=== PATIENT | male | born 1955 | race Caucasian/White ===

== ENCOUNTER → 2017-08-10 | Outpatient (CLI) | payer MEDICAID | LOC: FIMAGING 08:14 | PROVIDERS: ATTEND Internal Medicine | DX: I10 Essential (primary) hypertension (principal); R93.422 Abnormal radiologic findings on diagnostic imaging of left kidney; K76.0 Fatty (change of) liver, not elsewhere classified ==

== ENCOUNTER 2017-08-12 09:11 | Outpatient (CLI) | payer MEDICAID ==
[2017-08-12] MEDS ORDERED: NALOXONE HCL 0.4 MG/ML INJ ONE (11:04)
[2017-08-12] MEDS ORDERED: MIDAZOLAM 2 MG/2 ML VIAL ONE (11:05)
[2017-08-12] MEDS ORDERED: fentaNYL 100 MCG/2 ML INJ ONE (11:05)
[2017-08-12] MEDS ORDERED: FLUMAZENIL 0.5 MG/5 ML MDV IVP ONE (11:05)
--- NOTE | 2017-08-12 11:13 | PDGENHP ---
History & Physical Chief Complaint: Proteinuria History of Present Illness: Discovered on routine urinalysis, probably present since about 2009. "Foamy" urine. Pertinent Past, Social, Family History: Positive for kidney disease. History of hypertension, takes lisinopril. Cardiorespiratory Assessment: Lungs: clear to auscultation. Heart: RRR, 56 bpm , 2/6 low pitched holosystolic murmur.
--- NOTE | 2017-08-12 11:14 | PDPROPOC ---
Sedation Plan of Care Sedation Plan of Care: vital signs stable, mental status noted, patient educated of risks, benefits, alternatives, patient can tolerate sedation ASA Classification: ASA 2 Planned drugs: fentanyl, midazolam Mallampati Score: Class 3 Mallampati Reference Image: Patient passed 3-3-2 rule?: Yes
[2017-08-12] MEDS ORDERED: ALTEPLASE 2 MG VIAL IVP PRN (12:22)
[2017-08-12] MEDS ORDERED: GLUCAGON HCL 1 MG VIAL IVP PRN (12:22)
[2017-08-12] MEDS ORDERED: MIDAZOLAM 2 MG/2 ML VIAL IVP PRN (12:22)
[2017-08-12] MEDS ORDERED: PROTAMINE SULFATE 50 MG/5 ML VIAL IVP PRN (12:22)
[2017-08-12] MEDS ORDERED: HEPARIN 10,000 UNIT/10 ML MDV IVP PRN (12:22)
[2017-08-12] MEDS ORDERED: hydrALAZINE 20 MG/ML VIAL IVP PRN (12:22)
[2017-08-12] MEDS ORDERED: FLUMAZENIL 0.5 MG/5 ML MDV IVP PRN (12:22)
[2017-08-12] MEDS ORDERED: fentaNYL 100 MCG/2 ML INJ IVP PRN (12:22)
[2017-08-12] MEDS ORDERED: MEPERIDINE 25 MG/ML SYR IVP PRN (12:22)
[2017-08-12] MEDS ORDERED: NALOXONE HCL 0.4 MG/ML INJ IVP PRN (12:22)
[2017-08-12] MEDS ORDERED: NS 1,000 ML IV SCH (12:30)
[2017-08-12 12:52] VITALS: TEMP 98.6
[2017-08-12] MEDS ORDERED: OXYCODONE/APAP 5/325 TAB PO PRN (13:02)
[2017-08-12] MEDS ORDERED: ACETAMINOPHEN 325 MG TAB PO PRN (13:02)
[2017-08-12] MEDS ORDERED: ONDANSETRON 4 MG/2 ML VIAL IVP PRN (13:02)
--- NOTE | 2017-08-12 13:06 | PDRADPN ---
Radiology Procedure Note Date of Procedure: 08/12/17 Radiologist: Miguel Rae Anesthesia: IV Sedation Pre-op Diagnosis: proteinuria Post-op Diagnosis: same Indication: same Procedure: CT guided core needle biopsy of left kidney Finding(s): Tissue obtained from lower pole of left kidney Inf/Abcess present in the surg proc area at time of surgery?: No EBL: Minimal Complications: None. Specimen(s): Two cores in formalin. One core in Noman's fixative.
[2017-08-12 17:32] VITALS: BP 144/83; RESP 14; O2SAT 95
[2017-08-12 18:09] VITALS: PULSE 54
== END 2017-08-12 18:35 | disposition home or self-care (01) ==
LOC: FIMAGING 09:11
PROVIDERS: ATTEND Internal Medicine
PROC: 0TB13ZX Excision of Left Kidney, Percutaneous Approach, Diagnostic (ICD-10-PCS; principal; 2017-08-12 12:02)
DX: E85.9 Amyloidosis, unspecified (principal); E11.9 Type 2 diabetes mellitus without complications; I10 Essential (primary) hypertension
CPT/HCPCS: J2250; J2310; J3010

== ENCOUNTER → 2018-02-09 | Outpatient (CLI) | payer MEDICAID | LOC: FIMAGING 11:36 | PROVIDERS: ATTEND Nurse Practitioner | DX: I82.411 Acute embolism and thrombosis of right femoral vein (principal); I82.431 Acute embolism and thrombosis of right popliteal vein ==